=== PATIENT | female | born 1960 | race Caucasian/White ===

== ENCOUNTER 2018-03-25 07:09 | Inpatient (IN) | payer OTHER ==
[~2018-03-25] VITALS: Ht 167.6 cm; Wt 85.5 kg
[~2018-03-25 07:09] MED LIST: GABA300C10 PO
[2018-03-25] MEDS ORDERED: FENTANYL PF 250 MCG/5ML ONE (07:46)
[2018-03-25] MEDS ORDERED: MIDAZOLAM 1 MG/ML, 2ML ONE (07:46)
[2018-03-25] MEDS ORDERED: CEFAZOLIN 1,000 MG ONE (07:50)
[2018-03-25] MEDS ORDERED: SUCCINYLCHOLINE 20 MG/ML, 10ML ONE (07:50)
[2018-03-25] MEDS ORDERED: GLYCOPYRROLATE 0.2MG/1ML, 5ML ONE (07:50)
[2018-03-25] MEDS ORDERED: ROCURONIUM 10MG/ML,5ML ONE (07:50)
[2018-03-25] MEDS ORDERED: PHENYLEPHRINE 10 MG/ML ONE (07:50)
[2018-03-25] MEDS ORDERED: ONDANSETRON 2MG/ML, 2ML ONE (07:50)
[2018-03-25] MEDS ORDERED: PROPOFOL 10 MG/ML, 20ML ONE (07:50)
[2018-03-25] MEDS ORDERED: DEXAMETHASONE 4 MG/ML, 1ML ONE (07:50)
[2018-03-25] MEDS ORDERED: NEOSTIGMINE 1 MG/ML, 10ML ONE (07:50)
[2018-03-25] MEDS ORDERED: LACTATED RINGERS 1,000 ML IV SCH (08:02)
[2018-03-25 08:05] VITALS: BP 132/82
[2018-03-25] MEDS ORDERED: BUPIVACAINE/PF-EPI 0.5% 1:200K ONE (09:31)
[2018-03-25] MEDS ORDERED: GENTAMICIN 80 MG/2 ML ONE (09:31)
[2018-03-25] MEDS ORDERED: VANCOMYCIN 1,000 MG ONE (09:32)
[2018-03-25] MEDS ORDERED: FENTANYL PF 100 MCG/2ML ONE ×4 (09:32→14:27)
[2018-03-25] MEDS ORDERED: LIDOCAINE 1%-EPI 1:100K, 30ML ONE (09:32)
[2018-03-25] MEDS ORDERED: BACITRACIN 50,000 UNIT ONE (09:32)
[2018-03-25] MEDS ORDERED: THROMBIN 5,000 UNIT VIAL TP ONE (09:32)
[2018-03-25] MEDS ORDERED: morphine SULFATE/PF 1 MG/ML, 10ML ONE (09:32)
[2018-03-25] MEDS ORDERED: PROPOFOL 150 ML ONE (09:49)
[2018-03-25] MEDS ORDERED: LIDOCAINE-MPF 2% ,5ML ONE ×2 (09:54)
[2018-03-25] MEDS ORDERED: LIDOCAINE 4%, 4 ML SYR/CANN TP ONE (09:58)
[2018-03-25] MEDS ORDERED: EPHEDRINE 50 MG/ML, 1ML ONE (09:58)
[2018-03-25] MEDS ORDERED: HEPARIN 1,000 UNITS/ML, 30ML ONE (10:11)
[2018-03-25] MEDS ORDERED: KETAMINE 50 MG/ML, 10ML ONE (10:32)
[2018-03-25] MEDS ORDERED: OXYcodone 5 MG/5 ML ORAL.SOL UDC PO PRN (12:30)
[2018-03-25] MEDS ORDERED: HYDROmorphone 1 MG/ML, 1ML IV PRN (12:30)
[2018-03-25] MEDS ORDERED: ONDANSETRON 2MG/ML, 2ML IV PRN ×2 (12:30→16:00)
[2018-03-25] MEDS ORDERED: LORazepam 2 MG/ML, 1ML IVPush PRN (12:30)
[2018-03-25] MEDS ORDERED: PROMETHAZINE 25 MG/ML, 1ML IV PRN (12:30)
[2018-03-25] MEDS ORDERED: ONDANSETRON ODT 8 MG PO PRN (12:30)
[2018-03-25] MEDS ORDERED: MEPERIDINE/PF 25MG/0.5ML IVPush PRN (12:30)
[2018-03-25] MEDS ORDERED: MORPHINE SULFATE 4 MG/ML, 1ML IVPush PRN (12:30)
[2018-03-25] MEDS ORDERED: DIAZEPAM 5 MG TABLET ONE (13:54)
[2018-03-25] MEDS: FENTANYL PF 100 MCG/2ML IV PRN ×3 (14:00→14:29)
[2018-03-25] MEDS ORDERED: OXYcodone 5 MG/5 ML ORAL.SOL UDC ONE (14:14)
[2018-03-25] MEDS ORDERED: DIAZEPAM 5 MG TABLET PO ONE (14:30)
[2018-03-25] MEDS ORDERED: DIAZEPAM 5 MG/ML, 2ML IV PRN (16:00)
[2018-03-25] MEDS ORDERED: DIAZEPAM 5 MG TABLET PO PRN (16:00)
[2018-03-25] MEDS ORDERED: HYDROcodone/APAP 5/325 TABLET PO PRN (16:00)
[2018-03-25] MEDS ORDERED: LABETALOL 5MG/ML, 20ML IV PRN (16:00)
[2018-03-25] MEDS ORDERED: ONDANSETRON ODT 4 MG PO PRN (16:30)
[2018-03-25] MEDS: CEFAZOLIN PMX 1GM/50ML 50 ML IVPB SCH (17:51)
[2018-03-25] MEDS: D5%-0.9% NACL+KCL 20MEQ 1,000 ML IV SCH (17:51)
[2018-03-25 20:00] VITALS: BP 93/60
[2018-03-26 00:14] VITALS: BP 113/76
[2018-03-26] MEDS: CEFAZOLIN PMX 1GM/50ML 50 ML IVPB SCH ×3 (01:52→17:53)
[2018-03-26] MEDS: D5%-0.9% NACL+KCL 20MEQ 1,000 ML IV SCH ×3 (02:23→17:42)
[2018-03-26 02:32] VITALS: BP 114/76
[2018-03-26 04:34] LABS: BASOPHILS % (AUTO) 0 % (0-1); EOSINOPHILS % (AUTO) 0 % (1-7); LYMPHOCYTES # (AUTO) 0.51 x10^3/uL (1-3.4); LYMPHOCYTES % (AUTO) 7 % (22-44); MD NO; MEAN CORPUSCULAR HEMOGLOBIN 30.6 pg (27.0-34.8); MEAN CORPUSCULAR HGB CONC 33.6 g/dL (32.4-35.8); MEAN CORPUSCULAR VOLUME 91.1 fL (80-100); MEAN PLATELET VOLUME 10.3 fL (7.4-10.4); MONOCYTES # (AUTO) 0.52 x10^3/uL (0.2-0.8); MONOCYTES % (AUTO) 7 % (2-9); NEUTROPHILS # (AUTO) 6.33 x10^3/uL (1.8-6.8); NEUTROPHILS % (AUTO) 86 % (42-75); PLATELET COUNT 195 x10^3/uL (130-400); RED BLOOD COUNT 3.82 x10^6/uL (3.82-5.3); RED CELL DISTRIBUTION WIDTH 13.3 % (9.6-15.2)
[2018-03-26 07:55] VITALS: BP 98/65
[2018-03-26] MEDS ORDERED: DIAZEPAM 5 MG TABLET PO PRN (08:20)
[2018-03-26] MEDS: SENNA/DOCUSATE TABLET PO SCH (08:48)
[2018-03-26] MEDS: GABAPENTIN 300 MG CAPSULE PO SCH (08:48)
[2018-03-26] MEDS ORDERED: CALCIUM CARBONATE 500 MG TAB.CHEW ONE (12:58)
[2018-03-26] MEDS: CALCIUM CARBONATE 500 MG TAB.CHEW PO PRN ×2 (13:01→16:29)
[2018-03-26 15:54] VITALS: BP 97/63
[2018-03-26] MEDS: OXYcodone/APAP 5/325MG TABLET PO PRN ×2 (17:56→22:05)
[2018-03-26 19:42] VITALS: BP 94/62
[2018-03-27 00:36] VITALS: BP 101/67
[2018-03-27] MEDS: OXYcodone/APAP 5/325MG TABLET PO PRN ×2 (01:53→06:14)
[2018-03-27] MEDS: D5%-0.9% NACL+KCL 20MEQ 1,000 ML IV SCH (02:00)
[2018-03-27 04:44] LABS: BASOPHILS # (AUTO) 0.03 x10^3/uL (0-0.1); BASOPHILS % (AUTO) 1 % (0-1); EOSINOPHILS # (AUTO) 0.05 x10^3/uL (0-0.4); EOSINOPHILS % (AUTO) 1 % (1-7); LYMPHOCYTES # (AUTO) 1.29 x10^3/uL (1-3.4); LYMPHOCYTES % (AUTO) 22 % (22-44); MD NO; MEAN CORPUSCULAR HEMOGLOBIN 30.7 pg (27.0-34.8); MEAN CORPUSCULAR HGB CONC 33.6 g/dL (32.4-35.8); MEAN CORPUSCULAR VOLUME 91.4 fL (80-100); MEAN PLATELET VOLUME 9.7 fL (7.4-10.4); MONOCYTES # (AUTO) 0.56 x10^3/uL (0.2-0.8); MONOCYTES % (AUTO) 10 % (2-9); NEUTROPHILS # (AUTO) 3.95 x10^3/uL (1.8-6.8); NEUTROPHILS % (AUTO) 67 % (42-75); PLATELET COUNT 168 x10^3/uL (130-400); RED BLOOD COUNT 3.42 x10^6/uL (3.82-5.3)
[2018-03-27 06:51] VITALS: BP 99/64
[2018-03-27] MEDS: SENNA/DOCUSATE TABLET PO SCH (08:22)
[2018-03-27] MEDS: GABAPENTIN 300 MG CAPSULE PO SCH (08:22)
[2018-03-27] MEDS ORDERED: OXYC1TAB7 PO (09:20)
[2018-03-27] MEDS ORDERED: OXYC10TA6 PO (09:41)
== END 2018-03-27 10:08 | disposition home health service (06) | DRG 455 ==
LOC: ORIP 07:09 → 4NOR 15:18 → DCLOUNGE 03-27 09:54
PROVIDERS: ADMIT Orthopaedic Surgery Orthopaedic Surgery of the Spine; ATTEND Orthopaedic Surgery Orthopaedic Surgery of the Spine
PROC: 0SG00AJ Fusion of Lumbar Vertebral Joint with Interbody Fusion Device, Posterior Approach, Anterior Column, Open Approach (ICD-10-PCS; 2018-03-25)
PROC: 0QB20ZZ Excision of Right Pelvic Bone, Open Approach (ICD-10-PCS; 2018-03-25)
PROC: 0SB20ZZ Excision of Lumbar Vertebral Disc, Open Approach (ICD-10-PCS; 2018-03-25)
PROC: 3E0S3BZ Introduction of Anesthetic Agent into Epidural Space, Percutaneous Approach (ICD-10-PCS; 2018-03-25)
PROC: 4A11X4G Monitoring of Peripheral Nervous Electrical Activity, Intraoperative, External Approach (ICD-10-PCS; 2018-03-25)
PROC: 0SG0071 Fusion of Lumbar Vertebral Joint with Autologous Tissue Substitute, Posterior Approach, Posterior Column, Open Approach (ICD-10-PCS; principal; 2018-03-25 09:00)
DX: M48.062 Spinal stenosis, lumbar region with neurogenic claudication (principal); M54.16 Radiculopathy, lumbar region
CPT/HCPCS: 36415; 72100; J3490; 85025; 86850; 86900; 86923; C1713; G0378; J0690; J1100; J1644; J2250; J2270; J2274; J2405; J2704; J2710; J3010; J3370; C1751; C1762; J0330; J1580; J2370; J3480; J7120